=== PATIENT | male | born 1995 | race Caucasian/White ===

== ENCOUNTER 2021-05-06 10:35 | Outpatient (REF) | payer OTHER, SELFPAY ==
[2021-05-07 10:46] LABS: Syphilis Serology (RPR) Negative (Negative)
[2021-05-07 14:24] LABS: HIV-1/2 Ag & Ab Screen Negative (Negative)
[2021-05-07 14:47] LABS: Chlamydia Result Negative (Negative); GC Result Negative (Negative)
[2021-05-08 11:28] LABS: Hepatitis C Ab w Rflx HCV PCR Negative (Negative)
== END 2021-05-06 10:36 | disposition home or self-care (01) ==
LOC: NCHCN 10:35
PROVIDERS: PCP Family Medicine; Visit Provider Nurse Practitioner Family
DX: Z11.3 Encounter for screening for infections with a predominantly sexual mode of transmission (principal); Z11.4 Encounter for screening for human immunodeficiency virus [HIV]; Z11.59 Encounter for screening for other viral diseases
CPT/HCPCS: 86803; 87389; 87491; 87591; 86592